=== PATIENT | female | born 1985 | race Caucasian/White ===

== ENCOUNTER → 2019-01-03 | Outpatient (CLI) | payer OTHER | END | disposition home or self-care (01) | LOC: LABWHC1 11:03 | PROVIDERS: ATTEND Obstetrics & Gynecology | DX: N92.6 Irregular menstruation, unspecified (principal) | CPT/HCPCS: 36415; 84702; 86850; 86900; 86901 ==

== ENCOUNTER → 2019-06-16 | Outpatient (CLI) | payer OTHER ==
--- NOTE | 2019-06-16 13:56 | MR ---
EXAMINATION TYPE: MR brain wo/w con DATE OF EXAM: 06/16/2019 COMPARISON: NONE HISTORY: Papillitis OD TECHNIQUE: Multiplanar, multisequence images of the brain and brainstem is performed without and with IV contras t, utilizing 10 mL intravenous Gadavist . FINDINGS: Diffusion weighted images demonstrate no evidence of a recent infarct or other diffusion ab normality. There is no extra-axial fluid collection or significant white matter signal abnormality. The ventricular system and cisternal spaces are normal in size and appearance. The brain volume is age appropriate. Midline structures demonstrate normal morphology. The craniocervical junction appears within normal limits. Post contrast images demonstrate no abnormal enhancement. The dural venous sinuses appear pa tent. Mild to moderate mucosal thickening involving inferior aspect bilateral maxillary sinuses and b ilateral ethmoid sinuses is present. Mild mucosal thickening involving inferior frontal sinuses bilat erally. The globes are intact bilaterally. No suspicious optic nerve enhancement. Intraconal fat is maintaine d. IMPRESSION: Chronic paranasal sinus disease otherwise unremarkable study.
== END ==
LOC: RADMRIMAIN 13:05
PROVIDERS: ATTEND Ophthalmology
DX: H47.11 Papilledema associated with increased intracranial pressure (principal)
CPT/HCPCS: 70553; A9585

== ENCOUNTER → 2019-08-04 | Outpatient (CLI) | payer OTHER ==
--- NOTE | 2019-08-04 16:30 | FL ---
EXAMINATION TYPE: FL hysterosalpingography DATE OF EXAM: 08/04/2019 COMPARISON: None HISTORY: Infertility TECHNIQUE: 38 seconds fluoroscopy time. 13 images. 4 mL Isovue-[id number]. The procedure was explained to the patient, the risks complications and benefits. All questions are a nswered. Written and verbal informed consent was obtained. Patient was placed on the fluoroscopy table. A speculum was inserted. The vaginal vault was cleansed with Betadine. The cervix was localized. The catheter was placed into the cervical os. Contrast was a dministered in retrograde manner. This was observed under fluoroscopic observation during injection. The catheter was removed. The speculum was removed. Patient was placed in the prone position and a de layed images obtained. FINDINGS: Uterus has a normal morphology. The fallopian tubes appear normal. Free spill from the bilateral dist al fallopian tubes are noted. IMPRESSION: 1. No obstruction on hysterosalpingogram
== END | disposition home or self-care (01) ==
LOC: RADUSWWP 13:09
PROVIDERS: ATTEND Obstetrics & Gynecology
DX: N97.9 Female infertility, unspecified (principal)
CPT/HCPCS: 58340; 74740; Q9967

== ENCOUNTER → 2019-08-15 | Outpatient (CLI) | payer OTHER ==
--- NOTE | 2019-08-15 09:42 | CT ---
EXAMINATION TYPE: CT sinus wo con DATE OF EXAM: 08/15/2019 COMPARISON: MRI brain June 16, 2019 HISTORY: Chronic sinusitis per order. Headaches and facial pain since February for patient. CT DLP: 590.1 mGycm. Automated Exposure Control for Dose Reduction was Utilized. TECHNIQUE: CT scan of the sinuses is performed without contrast, axial images are obtained, coronal r eformatted images are also reviewed. FINDINGS: Minimal mucosal thickening inferior bilateral maxillary sinuses left greater than right is improved from MRI. Patchy fluid signal anterior and the larger caliber left sphenoid sinus axial imag e 20 is new from MRI. Improvement in mucosal thickening with mild residual mucosal thickening left an terior ethmoid sinuses noted from prior MRI. Frontal sinuses are currently clear The ostiomeatal comp osorio is patent bilaterally on coronal image 16. Visualized portion of mastoid air cells show no abnormal opacification. The globes are intact bilate rally. Visualized portion of brain parenchyma is unremarkable. IMPRESSION: Possible new mild left acute sphenoid sinusitis. Interval improvement in chronic paranasa l sinus disease from comparison MRI.
== END | disposition home or self-care (01) ==
LOC: RADCTMAIN 08:22
PROVIDERS: ATTEND Otolaryngology
DX: J32.9 Chronic sinusitis, unspecified (principal)
CPT/HCPCS: 70486

== ENCOUNTER → 2019-08-28 | Outpatient (CLI) | payer OTHER | END | disposition home or self-care (01) | LOC: LABWHC1 11:25 | PROVIDERS: ATTEND Obstetrics & Gynecology | DX: N92.6 Irregular menstruation, unspecified (principal) | CPT/HCPCS: 36415; 84702 ==

== ENCOUNTER 2020-04-03 21:02 | Outpatient (CLI) | payer OTHER ==
[2020-04-03 21:43] VITALS: BP 119/72; PULSE 77; RESP 16; TEMP 97.2
--- NOTE | 2020-04-04 07:14 | P.MSEPDOC ---
Presenting Problems - Arrival Data Date of Arrival on Unit: 04/03/20 Time of Arrival on Unit: 21:02 Mode of Transport: Ambulatory - Complaint OB-Reason for Admission/Chief Complaint: NST Medical History - Information : 1 Para: 0 Term: 0 : 0 Abortions: Spontaneous or Elective: 0 Number of Living Children: 0 - Gestational Age Gestational Age by VIPIN (wks/days): 35 Weeks and 6 Days Review of Systems - Review of Systems Constitutional: No problems Breast: No problems ENT: No problems Cardiovascular: No problems Respiratory: No problems Gastrointestinal: No problems Genitourinary: No problems Musculoskeletal: No problems Neurological: No problems Skin: No problems Vital Signs - Temperature Temperature: 97.2 F Temperature Source: Oral - Pulse Right Pulse Rate: 77 Pulse Assessment Method: Automatic Cuff - Respirations Respiratory Rate: 16 Oxygen Delivery Method: Room Air O2 Sat by Pulse Oximetry: 98 - Blood Pressure Right Arm Blood Pressure: 119/72 Blood Pressure Mean: 87 Blood Pressure Source: Automatic Cuff Medical Screen Scoring (Pre) - Cervical Exam Dilation: Exam Deferred Effacement: Exam Deferred Membranes: Intact - Uterine Contractions Frequency: N/A Duration: N/A Intensity: N/A - Maternal Vital Signs Maternal Temperature: N/A Maternal Blood Pressure: N/A Signs of Preeclampsia: N/A Maternal Respirations: N/A - Maternal Trauma Maternal Trauma: N/A - Assessment - Baby A Baseline FHR: 130 Heart Rate - NICHD Category: Category I (Normal) = 0 NST: Reactive Position: N/A Station: N/A - Total Score - Baby A Total Score - Baby A: 0 - Total Score - Baby B Total Score - Baby B: 0 - Total Score - Baby C Total Score - Baby C: 0 - Level of Risk - Baby A Level of Risk - Baby A: Low (0-5) - Level of Risk - Baby B Level of Risk - Baby B: Low (0-5) - Level of Risk - Baby C Level of Risk - Baby C: Low (0-5) Physician Notification (Pre) - Physician Notified Physician Notified Date: 04/03/20 Physician Notified Time: 21:15 New Order Received: Yes (discharge to keep appt on Sunday) Disposition - Disposition OB Disposition: Discharge to home Discharge Date: 04/03/20 Discharge Time: 21:30 I agree with the RN Medical Screening Exam: Yes Risk & Benefit of care provided described in d/c instruction: Yes Diagnosis: SUPERVISION OF ELDERLY MULTIGRAVIDA, UNSPECIFIED TRIMESTER
== END 2020-04-03 21:30 | disposition home or self-care (01) ==
LOC: FBPOP 21:02
PROVIDERS: ATTEND Obstetrics & Gynecology
DX: O09.523 Supervision of elderly multigravida, third trimester (principal); Z3A.35 35 weeks gestation of pregnancy
CPT/HCPCS: 59025

== ENCOUNTER 2020-04-10 13:14 | Outpatient (CLI) | payer OTHER ==
[2020-04-10 15:49] VITALS: BP 141/75; PULSE 88; RESP 17; TEMP 97.3
--- NOTE | 2020-04-21 16:40 | P.MSEPDOC ---
Presenting Problems - Arrival Data Date of Arrival on Unit: 04/10/20 Time of Arrival on Unit: 13:14 Mode of Transport: Ambulatory - Complaint OB-Reason for Admission/Chief Complaint: NST Comment: pt presents to triage for twice weekly nst for AMA Medical History - Information : 1 Para: 0 Term: 0 : 0 Abortions: Spontaneous or Elective: 0 Number of Living Children: 0 - Gestational Age Gestational Age by VIPIN (wks/days): 36 Weeks and 6 Days Review of Systems - Review of Systems Constitutional: No problems Breast: No problems ENT: No problems Cardiovascular: No problems Respiratory: No problems Gastrointestinal: No problems Genitourinary: No problems Musculoskeletal: No problems Neurological: No problems Skin: No problems Vital Signs - Temperature Temperature: 97.3 F - Pulse Right Brachial Pulse Rate: 88 - Respirations Respiratory Rate: 17 Oxygen Delivery Method: Room Air - Blood Pressure Right Arm Blood Pressure: 141/75 Blood Pressure Mean: 97 Blood Pressure Source: Automatic Cuff Medical Screen Scoring (Pre) - Cervical Exam Dilation: Exam Deferred Effacement: Exam Deferred Membranes: Intact - Uterine Contractions Frequency: N/A Duration: N/A Intensity: N/A - Maternal Vital Signs Maternal Temperature: N/A Signs of Preeclampsia: N/A Maternal Respirations: N/A - Maternal Trauma Maternal Trauma: N/A - Assessment - Baby A Baseline FHR: 130 Heart Rate - NICHD Category: Category I (Normal) = 0 NST: Reactive Position: N/A Station: N/A - Total Score - Baby A Total Score - Baby A: 0 - Total Score - Baby B Total Score - Baby B: 0 - Total Score - Baby C Total Score - Baby C: 0 - Level of Risk - Baby A Level of Risk - Baby A: Low (0-5) - Level of Risk - Baby B Level of Risk - Baby B: Low (0-5) - Level of Risk - Baby C Level of Risk - Baby C: Low (0-5) Physician Notification (Pre) - Physician Notified Physician Notified Date: 04/10/20 Physician Notified Time: 14:35 - Notification Comment Comment: rechecked 3 bp's and discharged pt home, no symptoms of preeclampsia Disposition - Disposition OB Disposition: Discharge to home, Written follow up instructions reviewed Discharge Date: 04/10/20 Discharge Time: 14:45 I agree with the RN Medical Screening Exam: Yes Risk & Benefit of care provided described in d/c instruction: Yes Diagnosis: RELATED CONDITIONS, UNSPECIFIED, THIRD TRIMESTER
== END 2020-04-10 14:45 | disposition home or self-care (01) ==
LOC: FBPOP 13:14
PROVIDERS: ATTEND Obstetrics & Gynecology
DX: O26.93 Pregnancy related conditions, unspecified, third trimester (principal); Z3A.36 36 weeks gestation of pregnancy
CPT/HCPCS: 59025; 99213

== ENCOUNTER 2020-04-22 11:51 | Inpatient (IN) | payer OTHER ==
[2020-04-22 12:46] LABS: Basophils % (A) 0 %; Eosinophils # (A) 0.1 k/uL (0-0.7); Eosinophils % (A) 1 %; HCT 40.4 % (34.0-46.0); HGB 13.6 gm/dL (11.4-16.0); Lymphocytes # (A) 1.5 k/uL (1.0-4.8); Lymphocytes % (A) 18 %; MCH 30.7 pg (25.0-35.0); MCHC 33.7 g/dL (31.0-37.0); Mean Platelet Volume 7.3; Monocytes # (A) 0.5 k/uL (0-1.0); Monocytes % (A) 6 %; Neutrophils # (A) 6.2 k/uL (1.3-7.7); Neutrophils % (A) 74 %; Platelet Count 259 k/uL (150-450); RBC 4.44 m/uL (3.80-5.40); RDW 13.7 % (11.5-15.5); WBC 8.3 k/uL (3.8-10.6)
[2020-04-22 12:52] LABS: Appearance,Urine Clear (Clear); Bilirubin,Urine Negative (Negative); Blood,Urine Negative (Negative); Color,Urine Light Yellow; Glucose,Urine (UA) Negative (Negative); Ketones,Urine Negative (Negative); Leukocyte Esterase,Urine Negative (Negative); Nitrite,Urine Negative (Negative); Protein,Urine Negative (Negative); Specific Gravity,Urine 1.009 (1.001-1.035); Urobilinogen,Urine <2.0 mg/dL (<2.0)
[2020-04-22 12:54] LABS: ALT 10 U/L (4-34); AST 19 U/L (14-36); African American GFR (CKD) >90 (>60 ml/min/1.73 sqM); Blood Urea Nitrogen 7 mg/dL (7-17); LDH 303 U/L (313-618); Non-African American GFR(CKD) >90 (>60 ml/min/1.73 sqM)
[2020-04-22 13:00] LABS: Creatinine,Urine Random 42.1 mg/dL; Protein/Creatinine Ratio,Urine 0.333
[2020-04-22] MEDS ORDERED: ACETAMINOPHEN TAB 500 MG TAB PO PRN (15:13)
[2020-04-22] MEDS ORDERED: DINOPROSTONE 10 MG INSERT.ER VAGINAL ONE (16:00)
--- NOTE | 2020-04-22 18:04 | P.HPOB ---
History of Present Illness H&P Date: 04/22/20 Chief Complaint: Elevated blood pressures, headache This is a 35-year-old female 2 para 0 with an estimated date of confinement of 05/02/2020, estimated gestational age of 38-4/7 weeks, who presents to labor and delivery with complaints of elevated blood pressures at home in the 140s over 80s. She also has noticed a headache today. She has been having lower extremity swelling for a little while now. course has been complicated by renal pelvis dilation. She has been getting twice weekly nonstress tests and biophysical profiles at maternal medicine. Her latest ultrasound on 04/19/2020 still showed renal dilatation and fetus in the vertex presentation. All of her preeclampsia labs were normal other than a protein to creatinine ratio of 0.33. Her blood pressures however were in the 140s to 150s over 80s to 90s. labs: Hepatitis B surface antigen-negative RPR-nonreactive Rubella-immune Blood type-A+ Antibody screen-negative Hemoglobin-13.7 Random glucose-89 Obstetrical ultrasound-normal anatomy other than renal pelvis dilatation 1 hour Glucola-111 Group B streptococcus-negative Obstetrical history: history of 1 termination of . Gynecologic history: History of chlamydia treated in 2008. History of infertility. Patient did conceive on Clomid. Social history: She is . She works in a pharmacy. Review of Systems Constitutional: Denies chills, Denies fever Eyes: denies blurred vision Ears, nose, mouth and throat: Reports headache, Denies sore throat Cardiovascular: Denies chest pain, Denies shortness of breath Respiratory: Denies cough Gastrointestinal: Denies abdominal pain, Denies diarrhea, Denies nausea, Denies vomiting Genitourinary: Reports pelvic pain, Reports Musculoskeletal: Reports low back pain Musculoskeletal: bilateral: foot swelling Integumentary: Denies pruritus, Denies rash Neurological: Denies numbness, Denies weakness Psychiatric: Denies anxiety, Denies depression Past Medical History Past Medical History: No Reported History History of Any Multi-Drug Resistant Organisms: None Reported Additional Past Surgical History / Comment(s): LEEP 2010, wisdom teeth removal Past Anesthesia/Blood Transfusion Reactions: No Reported Reaction Past Psychological History: ADD/ADHD Smoking Status: Never smoker Past Drug Use History: None Reported - Past Family History Father Family Medical History: Coronary Artery Disease (CAD), Hypertension Additional Family Medical History / Comment(s): heart attack 2003 Medications and Allergies Home Medications Medication Instructions Recorded Confirmed Type Fexofenadine HCl [Pam Allergy] 60 mg PO BID 04/03/20 04/22/20 History Pnv,Calcium 72/Iron/Folic Acid 1 tab PO DAILY 04/03/20 04/22/20 History [ Plus Tablet] RX: Folic Acid 1 tab PO DAILY 04/03/20 04/22/20 History Allergies Allergy/AdvReac Type Severity Reaction Status Date / Time No Known Allergies Allergy Verified 04/22/20 12:14 Exam Osteopathic Statement: *. No significant issues noted on an osteopathic structural exam other than those noted in the History and Physical/Consult. Vital Signs Temp Pulse Resp BP Pulse Ox 04/22/20 15:42 97.7 F 75 18 144/93 98 04/22/20 12:16 97.7 F 93 18 144/93 98 Intake and Output 04/22/20 04/22/20 04/22/20 06:59 14:59 22:59 Intake Total 350 Balance 350 Intake: Oral 350 Other: # Voids 2 Weight 115.212 kg 115.212 kg HEENT: Within normal limits Heart: Regular rate and rhythm Lungs: Clear to auscultation bilaterally Abdomen: Cervix: Fingertip, 70%, -2 station, anterior. heart tones: Category 1 Contractions: Irregular Extremities: Negative Homans. 2+ pitting edema. Results Result Diagrams: 04/22/20 12:30 04/22/20 12:30 Abnormal Lab Results - Last 24 Hours (Table) 04/22/20 Range/Units 12:30 Creatinine 0.46 L (0.52-1.04) mg/dL Lactate Dehydrogenase 303 L (313-618) U/L Assessment and Plan (1) Gestational hypertension Current Visit: Yes Status: Acute Code(s): O13.9 - GESTATIONAL HTN W/O SIGNIFICANT PROTEINURIA, UNSP TRIMESTER SNOMED Code(s): 133880691 Plan: Will admit for Cervidil cervical ripening followed by oxytocin induction of labor due to gestational hypertension. Will observe blood pressures since they are not in the severe category at this time. Patient and are in agreement with this plan. She was also offered a section since she is remote from delivery but since she is stable at this time, she wishes to proceed with induction of labor.
[2020-04-23] MEDS: BUTORPHANOL 1 MG/ML 1 ML VIAL IV PRN ×2 (03:36→09:39)
[2020-04-23] MEDS: LACTATED RINGERS 1,000 ML IV SCH ×4 (03:45→17:36)
[2020-04-23] MEDS ORDERED: LIDOCAINE 0.5% (PF) 5 MG/ML (50 ML SDV) SQ PRN (04:32)
[2020-04-23] MEDS ORDERED: OXYTOCIN 10 UNIT/ML 1 ML VIAL IM PRN (04:32)
[2020-04-23] MEDS ORDERED: CARBOPROST TROMETHAMINE 250 MCG/ML 1 ML AMP IM PRN (04:32)
[2020-04-23] MEDS ORDERED: METHYLERGONOVINE 0.2 MG/ML 1 ML AMP IM PRN (04:32)
[2020-04-23] MEDS ORDERED: TERBUTALINE 1 MG/ML VIAL SQ PRN (04:32)
[2020-04-23] MEDS ORDERED: OXYTOCIN 30 UNITS/500 ML NS 30 UNIT in SALINE 1 500ML.BAG IV SCH (04:32)
[2020-04-23] MEDS ORDERED: LIDOCAINE 1% (10MG/ML) FOR IV START INTRADERMA PRN (04:32)
[2020-04-23] MEDS ORDERED: PRENATAL VIT-IRON-FOLIC ACID 1 EACH CAP PO SCH (09:00)
[2020-04-23] MEDS: LORATADINE 10 MG TAB PO SCH (09:41)
[2020-04-23] MEDS: FOLIC ACID 1 MG TAB PO SCH (09:41)
[2020-04-23] MEDS ORDERED: CITRIC ACID-SODIUM CITRATE 15 ML CUP PO ONE (18:39)
[2020-04-23] MEDS ORDERED: KETOROLAC 30 MG/ML 1 ML VIAL ONE (19:38)
[2020-04-23] MEDS ORDERED: OXYTOCIN 10 UNIT/ML 1 ML VIAL ONE (19:38)
[2020-04-23] MEDS ORDERED: ONDANSETRON 4 MG/2 ML VIAL ONE (19:38)
[2020-04-23] MEDS ORDERED: METOCLOPRAMIDE 5 MG/ML 2 ML VIAL IVP PRN (20:28)
[2020-04-23] MEDS ORDERED: ONDANSETRON 4 MG/2 ML VIAL IVP PRN (20:28)
[2020-04-23] MEDS ORDERED: ACETAMINOPHEN TAB 325 MG TAB PO PRN (20:28)
[2020-04-23] MEDS ORDERED: HYDROmorphone PCA 10 MG/50 ML BAG IV PRN (20:28)
[2020-04-23] MEDS ORDERED: diphenhydrAMINE 25 MG CAP PO PRN (20:28)
[2020-04-23] MEDS ORDERED: HYDROcodone/APAP 7.5-325MG 1 EACH TAB PO PRN (20:28)
[2020-04-23] MEDS ORDERED: diphenhydrAMINE 50 MG/ML 1 ML VIAL IVP PRN ×2 (20:28)
[2020-04-23] MEDS ORDERED: ZOLPIDEM 5 MG TAB PO PRN (20:28)
[2020-04-23] MEDS ORDERED: OXYTOCIN 20 UNITS/1000 ML NS 1,000 ML IV SCH (20:28)
[2020-04-23] MEDS ORDERED: NALOXONE 0.4 MG/ML 1 ML VIAL IV PRN ×2 (20:28)
[2020-04-23] MEDS ORDERED: diphenhydrAMINE 50 MG CAP PO PRN (20:28)
[2020-04-23] MEDS ORDERED: SIMETHICONE 80 MG CHEWABLE PO PRN (20:28)
--- NOTE | 2020-04-23 20:30 | P.OP ---
Date of Procedure: 04/23/20 Preoperative Diagnosis: 1. Intrauterine at 38-5/7 weeks. 2. Gestational hypertension. 3. tachycardia. 4. intolerance of labor. Postoperative Diagnosis: Same Procedure(s) Performed: Primary low transverse section Anesthesia: epidural Surgeon: Martha Neal Inventory Administrator #1: Emily Rahman Estimated Blood Loss (ml): 400 Pathology: other (Placenta) Condition: stable Disposition: floor Indications for Procedure: This is a 35 year old female 2 para 0 at 38-5/7 weeks who was admitted for gestational hypertension. She was given a Cervidil cervical ripening last night followed by oxytocin induction of labor today. Initially she started at fingertip and did progress to a maximum of 6 centimeters 90% and -2 station. At this time mother did start to have a low-grade temp and tachycardia was noted. In addition the fetus started having some late decelerations. At this point the decision was made to proceed with section. I have discussed the risks, benefits, and alternative therapies for the above- mentioned procedure and for both sedation/anesthesia as well as necessary blood products administration, if indicated, as they pertain to this patient. The patient has indicated her understanding and acceptance of the risks and procedures discussed. Operative Findings: A viable male is noted in the vertex presentation with scores of 9 at 1 minute and 9 at 5 minutes and infant weight of 6 lbs. 12 oz. Some caput was noted. Normal uterus tubes and ovaries are noted. Description of Procedure: The patient is taken to the operating room where she is placed in the dorsal supine position with leftward tilt after epidural anesthesia is bolused. She is prepped and draped in the normal sterile fashion. Skin was tested and found to be adequately anesthetized. A Pfannenstiel skin incision was made with a scalpel. A second knife was used to carry the incision down to the underlying layer of fascia. The fascia was nicked in the midline with a scalpel and then extended laterally bilaterally with Anderson scissors. The anterior lip of the fascia was grasped with 2 Gabrielle clamps and then dissected off the underlying rectus muscle in the midline with Anderson scissors. The inferior aspect of the fascial incision was grasped with 2 Gabrielle clamps and dissected off the underlying rectus muscle and the midline with Anderson scissors. Next the peritoneum layer was tented up with 2 hemostats and then entered sharply with the scalpel. The incision is extended superiorly and inferiorly with Metzenbaum scissors. Next a DeLee retractor is placed. The vesicouterine peritoneum is entered sharply with Metzenbaum scissors and extended laterally bilaterally with Metzenbaum scissors and then the bladder flap is pushed inferiorly. The lower uterine segment is incised in transverse fashion with the scalpel and then bluntly entered with a hemostat. Clear fluid is noted. The incision was then extended laterally bilaterally with 2 fingers. Next the infant's head is delivered through the incision. Nose and mouth are bulb suctioned. The remainder of the infant is easily delivered and placed on mother's abdomen. Cord is clamped and cut. Infant is taken to warmer by nursing staff. Uterine fundus is gently massaged and placenta is delivered manually. Uterus is exteriorized and cleared of all clots and debris. Uterine incision is closed with 0 Vicryl suture in a running locked fashion. A second layer of 0 Vicryl suture is used in a running fashion for hemostasis. Once adequate hemostasis as assured, the vesicouterine peritoneum is reapproximated with 2-0 Vicryl suture in a running fashion. Posterior cul-de-sac is suctioned of all clots and debris. Uterus is returned to the abdomen. Incision is noted to be hemostatic. Peritoneal layer is closed with 0 Vicryl suture in a running fashion. Muscle layer is reapproximated with 0 Vicryl suture in interrupted fashion. Fascia layer is then closed with 0 PDS suture with 2 sutures meeting in the midline and the knots buried in either side and in the midline. The subcutaneous tissue was then closed with 2-0 Vicryl suture. Skin layer was then closed with jen. All sponge and needle counts are correct. The patient is taken to recovery room in stable condition.
[2020-04-23] MEDS: SENNOSIDES-DOCUSATE SODIUM 1 EACH TAB PO SCH (21:20)
[2020-04-23] MEDS ORDERED: ACETAMINOPHEN IV (For NPO) 1,000 MG in EMPTY BAG 1 BAG IVPB STA (22:36)
[2020-04-24] MEDS: LACTATED RINGERS 1,000 ML IV SCH (01:05)
[2020-04-24] MEDS: KETOROLAC 15 MG/ML 1 ML VIAL IVP PRN ×3 (04:42→19:51)
[2020-04-24 06:28] LABS: Basophils % (A) 0 %; Eosinophils # (A) 0.1 k/uL (0-0.7); Eosinophils % (A) 0 %; HCT 36.4 % (34.0-46.0); HGB 11.9 gm/dL (11.4-16.0); Lymphocytes # (A) 1.4 k/uL (1.0-4.8); Lymphocytes % (A) 10 %; MCH 30.9 pg (25.0-35.0); MCHC 32.8 g/dL (31.0-37.0); MCV 94.2 fL (80.0-100.0); Mean Platelet Volume 7.6; Monocytes # (A) 0.6 k/uL (0-1.0); Monocytes % (A) 5 %; Neutrophils # (A) 11.3 k/uL (1.3-7.7); Neutrophils % (A) 84 %; Platelet Count 199 k/uL (150-450); RBC 3.87 m/uL (3.80-5.40); RDW 13.7 % (11.5-15.5); WBC 13.6 k/uL (3.8-10.6)
[2020-04-24] MEDS: HYDROcodone/APAP 5-325MG 1 EACH TAB PO PRN (09:02)
[2020-04-24] MEDS: SENNOSIDES-DOCUSATE SODIUM 1 EACH TAB PO SCH ×2 (09:08→19:51)
--- NOTE | 2020-04-24 11:10 | P.PNOBGPC ---
Subjective - Subjective Principal diagnosis: Status post primary section postoperative day #1 Interval history: Patient states her pain is okay today. She did have some trouble controlling pain last night. She did have Duramorph placed in the epidural before it was pulled. She states that nothing they have given her has helped that much. She is passing flatus but no bowel movement yet. She has urinated. She is working at breast-feeding. Patient reports: Reports appetite normal, Reports voiding normally, Reports pain poorly controlled, Reports ambulating normally [place]: doing well Objective - Vital Signs Latest vital signs: Vital Signs Temp Pulse Resp BP Pulse Ox 04/24/20 08:00 97.8 F 73 14 114/75 04/24/20 04:00 98.6 F 70 16 112/72 97 04/24/20 00:00 98.2 F 71 16 110/70 96 04/23/20 22:21 100.2 F H 81 16 142/66 97 04/23/20 21:51 85 16 137/64 97 04/23/20 21:21 84 16 143/67 96 04/23/20 21:06 81 16 139/65 96 04/23/20 20:51 84 16 142/90 97 04/23/20 20:36 82 16 136/60 98 04/23/20 20:28 98 04/23/20 20:21 99.1 F 89 16 119/57 98 Intake and Output 04/23/20 04/24/20 04/24/20 22:59 06:59 14:59 Output Total 600 Balance -600 Output: Urine 600 Uretheral ([place]) 600 Other: # Voids 0 - Exam Extremities: Present: edema. Absent: tenderness Abdomen: Present: normal appearance, soft (Positive bowel sounds 4). Absent: distention, tenderness Incision: Present: normal, dry, intact. Absent: erythematous Uterus: Present: normal, firm. Absent: tenderness - Labs Labs: Abnormal Lab Results - Last 24 Hours (Table) 04/24/20 Range/Units 05:35 WBC 13.6 H (3.8-10.6) k/uL Neutrophils # 11.3 H (1.3-7.7) k/uL Assessment and Plan Assessment: Status post primary low transverse section postoperative day #1 (1) Gestational hypertension Current Visit: Yes Status: Acute Code(s): O13.9 - GESTATIONAL HTN W/O SIGNIFICANT PROTEINURIA, UNSP TRIMESTER SNOMED Code(s): 245198653 Plan: Continue with postoperative and care. Encouraged ambulation and fluids. Will work on breast-feeding today. Will advance diet as tolerated.
--- NOTE | 2020-04-24 11:17 | P.MSEPDOC ---
Presenting Problems - Arrival Data Date of Arrival on Unit: 04/22/20 Time of Arrival on Unit: 13:30 Mode of Transport: Ambulatory - Complaint OB-Reason for Admission/Chief Complaint: PIH Comment: pt having symptoms of preeclampsia Medical History - Information : 2 Para: 0 Term: 0 : 0 Abortions: Spontaneous or Elective: 0 Number of Living Children: 0 - Gestational Age Gestational Age by VIPIN (wks/days): 38 Weeks and 5 Days Review of Systems - Review of Systems Constitutional: No problems Breast: No problems ENT: No problems Cardiovascular: No problems Respiratory: No problems Gastrointestinal: No problems Genitourinary: No problems Musculoskeletal: No problems Neurological: No problems Skin: No problems Vital Signs - Temperature Temperature: 97.8 F Temperature Source: Oral - Pulse Right Brachial Pulse Rate: 73 Pulse Assessment Method: Automatic Cuff - Respirations Respiratory Rate: 14 Oxygen Delivery Method: Room Air - Blood Pressure Right Arm Blood Pressure: 114/75 Blood Pressure Mean: 88 Blood Pressure Source: Automatic Cuff Medical Screen Scoring (Pre) - Cervical Exam Dilation: 1-3 cm = 1 Effacement: More than 50% = 2 Membranes: Intact - Uterine Contractions Frequency: N/A Duration: N/A Intensity: N/A - Maternal Vital Signs Maternal Temperature: N/A Maternal Blood Pressure: Systolic >139 = 2 Signs of Preeclampsia: Headache = 1 Maternal Respirations: N/A - Maternal Trauma Maternal Trauma: N/A - Assessment - Baby A Baseline FHR: 150 Heart Rate - NICHD Category: Category I (Normal) = 0 NST: Reactive Position: N/A Station: N/A - Total Score - Baby A Total Score - Baby A: 6 - Total Score - Baby B Total Score - Baby B: 6 - Total Score - Baby C Total Score - Baby C: 6 - Level of Risk - Baby A Level of Risk - Baby A: Medium (6-9) - Level of Risk - Baby B Level of Risk - Baby B: Medium (6-9) - Level of Risk - Baby C Level of Risk - Baby C: Medium (6-9) Physician Notification (Pre) - Physician Notified Physician Notified Date: 04/22/20 Physician Notified Time: 12:25 New Order Received: Yes - Notification Comment Comment: obtain PIH labs, Medical Screen Scoring (Post) - Maternal Vital Signs Maternal Temperature: N/A Maternal Blood Pressure: Systolic >139 = 2 Signs of Preeclampsia: Headache = 1 Maternal Respirations: N/A - Maternal Trauma Maternal Trauma: N/A - Assessment - Baby A Heart Rate: 135 Heart Rate - NICHD Category: Category I (Normal) = 0 NST: Reactive Position: N/A Station: N/A - Total Score Total Score - Baby A: 3 Total Score - Baby B: 3 Total Score - Baby C: 3 - Post Treatment Level of Risk Post Treatment Level of Risk - Baby A: Low (0-5) Post Treatment Level of Risk - Baby B: Low (0-5) Post Treatment Level of Risk - Baby C: Low (0-5) Physician Notification (Post) - Physician Notified Physician Notified Date: 04/22/20 Physician Notified Time: 13:30 Physician/Practitioner Notified:: Dr. Neal Spoke With: Dr. Neal New Order Received: Yes - Notification Comment Comment: admit pt for cervidil induction due to gest hypertension Disposition - Disposition OB Disposition: Admit I agree with the RN Medical Screening Exam: Yes Risk & Benefit of care provided described in d/c instruction: Yes Diagnosis: GESTATIONAL HTN W/O SIGNIFICANT PROTEINURIA, THIRD TRIMESTER
[2020-04-24] MEDS: LORATADINE 10 MG TAB PO SCH (18:18)
[2020-04-25] MEDS: HYDROcodone/APAP 5-325MG 1 EACH TAB PO PRN (00:34)
[2020-04-25] MEDS: IBUPROFEN 600 MG TAB PO PRN ×3 (06:31→21:22)
--- NOTE | 2020-04-25 10:46 | P.PNOBGPC ---
Subjective - Subjective Principal diagnosis: Status post primary section postoperative day #2 Interval history: Patient is doing better today. Her pain is more controlled. Lochia is minimal. She is still working on breast-feeding. Baby is on a bili light. She is urinating without difficulty. She is passing flatus and bowel movement. Patient reports: Reports appetite normal, Reports voiding normally, Reports pain well controlled, Reports ambulating normally : doing well Objective - Vital Signs Latest vital signs: Vital Signs Temp Pulse Resp BP Pulse Ox 04/25/20 08:00 98 F 80 14 132/87 04/25/20 00:00 97.7 F 74 14 124/81 96 04/24/20 15:40 97.9 F 73 14 110/73 04/24/20 12:00 97.8 F 76 14 120/80 04/24/20 11:17 97.8 F 73 14 114/75 - Exam Extremities: Present: edema (2+ pitting). Absent: tenderness Abdomen: Present: normal appearance, soft (Positive bowel sounds 4). Absent: distention, tenderness Incision: Present: normal, dry, intact. Absent: erythematous Uterus: Present: normal, firm. Absent: tenderness Assessment and Plan Assessment: Status post primary section postoperative day #2 (1) Gestational hypertension Current Visit: Yes Status: Acute Code(s): O13.9 - GESTATIONAL HTN W/O SIGNIFICANT PROTEINURIA, UNSP TRIMESTER SNOMED Code(s): 218631379 Plan: Will continue with postoperative and care. Blood pressures have been normal. Possible discharge home tomorrow.
[2020-04-25] MEDS: SENNOSIDES-DOCUSATE SODIUM 1 EACH TAB PO SCH ×2 (10:55→21:18)
[2020-04-25] MEDS: LACTATED RINGERS 1,000 ML IV SCH (10:56)
[2020-04-25] MEDS: LORATADINE 10 MG TAB PO SCH (10:56)
--- NOTE | 2020-04-25 14:55 | P.PN ---
Progress Note - Text 04/24 35-year-old female status post and received Duramorph why the epidural catheter. Patient seen and evaluated for postop pain control, patient was comfortable no complaints of nausea vomiting. Doing well
[2020-04-25] MEDS: FOLIC ACID 1 MG TAB PO SCH (21:25)
[2020-04-26] MEDS: HYDROcodone/APAP 5-325MG 1 EACH TAB PO PRN ×2 (08:20)
[2020-04-26] MEDS: SENNOSIDES-DOCUSATE SODIUM 1 EACH TAB PO SCH (08:21)
[2020-04-26 08:57] VITALS: BP 121/80; PULSE 73; RESP 16; TEMP 98.3
--- NOTE | 2020-04-26 08:59 | P.DS ---
Providers Date of admission: 04/22/20 13:35 Expected date of discharge: 04/26/20 Attending physician: Martha Neal Primary care physician: Stated None - Discharge Diagnosis(es) (1) Gestational hypertension Current Visit: Yes Status: Acute Hospital Course: This is a 35 Neal female 2 para 0 at 38-6/7 weeks who presented with elevated blood pressures. She was diagnosed with gestational hypertension. All of her preeclampsia labs were negative. She underwent Cervidil cervical ripening followed by oxytocin induction of labor. She ultimately ended up with a primary section for intolerance to labor on 04/23/2020. She delivered a viable male infant in the vertex presentation with scores of 9 at 1 minute and 9 at 5 minutes and infant weight of 6 lbs. 12 oz. Her postoperative course has been essentially uncomplicated. Her blood pressures have been stable. She is passing flatus and bowel movement at this time. Her pain is well-controlled with ibuprofen and [place]. She is working on breast- feeding. Vital signs are stable. Abdomen is soft with positive bowel sounds 4. Incision is clean dry and intact with jen in place. Extremities show negative Homans. Impression is status post primary section postoperative day #3. Plan is to discharge home today. Routine postoperative and instructions are given. She is advised to follow up in the office in approximately 1 week for a postoperative check and in 6 weeks for check. She will be given a prescription for ibuprofen and [place]. She will also be given a prescription for a breast pump. She is advised to call the office if she has any further questions or concerns prior to her appointment time. Procedures: Cervidil cervical ripening Oxytocin induction of labor Primary low transverse section for delivery of a viable male on 04/23/2020 Patient Condition at Discharge: Stable Plan - Discharge Summary New Discharge Prescriptions: New Ibuprofen [Motrin] 600 mg PO Q6HR PRN #60 tab PRN Reason: Mild Pain Or Fever >= 100.5 HYDROcodone/APAP 5-325MG [[place] 5-325] 1 each PO Q4HR PRN #40 tab PRN Reason: Moderate Pain Continue Fexofenadine HCl [Pam Allergy] 60 mg PO BID Pnv,Calcium 72/Iron/Folic Acid [ Plus Tablet] 1 tab PO DAILY Folic Acid 1 tab PO DAILY Discharge Medication List Fexofenadine HCl [Pam Allergy] 60 mg PO BID 07/25/20 [History] Folic Acid 1 tab PO DAILY 04/03/20 [History] Pnv,Calcium 72/Iron/Folic Acid [ Plus Tablet] 1 tab PO DAILY 04/03/20 [History] HYDROcodone/APAP 5-325MG [[place] 5-325] 1 each PO Q4HR PRN #40 tab 04/26/20 [Rx] Ibuprofen [Motrin] 600 mg PO Q6HR PRN #60 tab 04/26/20 [Rx] Follow up Appointment(s)/Referral(s): Martha Neal DO [Doctor of Osteopathic Medicine] - 1 Week Activity/Diet/Wound Care/Special Instructions: Instructions 1. Do not begin any exercise program for 3 weeks. 2. Do not resume sexual relations for 3 weeks or longer if uncomfortable. 3. You may take tub baths or showers at any time. 4. You may use tampons if desired after 3 weeks. 5. Keep the area of episiotomy (stitches) clean and dry. 6. If you are not nursing, wear a good fitting, supportive bra during the day and limit fluid intake for at least 1 week to prevent breast engorgement. 7. Call the office, [phone], within the next week to make appointment for your 6 week checkup if it has not already been made. 8. Report any of the following occurrences to the doctor promptly: a. Heavy, excessive bleeding b. Chills, fever c. Burning or frequency of urination d. Pain or redness and breasts if nursing e. Increasing pain or swelling in episiotomy (stitches). In addition to the above instructions, the following additional should be followed: 1. No heavy lifting or straining (exercising) until after 6 week checkup. 2. Keep abdominal incision clean and dry: You may wear a dressing if more comfortable. 3. Make office appointment for 10 days after going home or as instructed by her doctor. Discharge Disposition: HOME SELF-CARE
[2020-04-26] MEDS: LORATADINE 10 MG TAB PO SCH (10:25)
[2020-04-26] MEDS: FOLIC ACID 1 MG TAB PO SCH (10:25)
[2020-04-26] MEDS: IBUPROFEN 600 MG TAB PO PRN (13:46)
== END 2020-04-26 13:50 | disposition home or self-care (01) | DRG 787 ==
LOC: FBPOP 11:51 → 4FBP 13:35
PROVIDERS: ADMIT Obstetrics & Gynecology; ATTEND Obstetrics & Gynecology
PROC: 3E0P7VZ Introduction of Hormone into Female Reproductive, Via Natural or Artificial Opening (ICD-10-PCS; 2020-04-22)
PROC: 10D00Z1 Extraction of Products of Conception, Low, Open Approach (ICD-10-PCS; principal; 2020-04-23 19:47)
DX: O13.4 Gestational [pregnancy-induced] hypertension without significant proteinuria, complicating childbirth (principal); O75.2 Pyrexia during labor, not elsewhere classified; O12.14 Gestational proteinuria, complicating childbirth; O76 Abnormality in fetal heart rate and rhythm complicating labor and delivery; F90.9 Attention-deficit hyperactivity disorder, unspecified type; O99.344 Other mental disorders complicating childbirth; Z3A.38 38 weeks gestation of pregnancy; Z37.0 Single live birth; Z82.49 Family history of ischemic heart disease and other diseases of the circulatory system
CPT/HCPCS: 59025; 81003; 82565; 82570; 83615; 84156; 84450; 84460; 84520; 84550; 85025; 86850; 86900; 86901; 88307; 99215

== ENCOUNTER 2021-04-26 11:53 | Inpatient (IN) | payer OTHER ==
[2021-04-26 12:43] LABS: Basophils % (A) 0 %; Eosinophils # (A) 0.1 k/uL (0-0.7); Eosinophils % (A) 1 %; HCT 42.1 % (34.0-46.0); HGB 14.4 gm/dL (11.4-16.0); Lymphocytes # (A) 1.4 k/uL (1.0-4.8); Lymphocytes % (A) 17 %; MCH 32.3 pg (25.0-35.0); MCHC 34.2 g/dL (31.0-37.0); MCV 94.7 fL (80.0-100.0); Mean Platelet Volume 8.5; Monocytes # (A) 0.4 k/uL (0-1.0); Monocytes % (A) 5 %; Neutrophils # (A) 6.2 k/uL (1.3-7.7); Neutrophils % (A) 76 %; Platelet Count 282 k/uL (150-450); Poikilocytosis Slight; RBC 4.45 m/uL (3.80-5.40); RDW 14.3 % (11.5-15.5); WBC 8.2 k/uL (3.8-10.6)
[2021-04-26 12:50] LABS: Appearance,Urine Cloudy (Clear); Bacteria,Urine Rare /hpf; Bilirubin,Urine Negative (Negative); Blood,Urine Negative (Negative); Color,Urine Light Yellow; Glucose,Urine (UA) Negative (Negative); Ketones,Urine Negative (Negative); Leukocyte Esterase,Urine Small (Negative); Mucus,Urine Rare /hpf; Nitrite,Urine Negative (Negative); Protein,Urine Negative (Negative); Specific Gravity,Urine 1.008 (1.001-1.035); Squamous Epithelial Cell,Urine 14 /hpf (0-4); Urobilinogen,Urine <2.0 mg/dL (<2.0); WBC,Urine 3 /hpf (0-5)
[2021-04-26 12:54] LABS: ALT 12 U/L (4-34); AST 22 U/L (14-36); African American GFR (CKD) >90 (>60 ml/min/1.73 sqM); Blood Urea Nitrogen 5 mg/dL (7-17); LDH 434 U/L (313-618); Non-African American GFR(CKD) >90 (>60 ml/min/1.73 sqM); Uric Acid 5.5 mg/dL (3.7-7.4)
[2021-04-26 12:56] LABS: Creatinine,Urine Random 35.2 mg/dL; Protein/Creatinine Ratio,Urine 0.455
[2021-04-26] MEDS ORDERED: MAG HYDROX/AL HYDROX/SIMETH 30 ML CUP PO PRN (13:16)
[2021-04-26] MEDS ORDERED: CITRIC ACID-SODIUM CITRATE 15 ML CUP PO ONE (13:18)
[2021-04-26 13:59] LABS: Basophils % (A) 0 %; Eosinophils # (A) 0.1 k/uL (0-0.7); Eosinophils % (A) 1 %; HCT 42.1 % (34.0-46.0); HGB 14.8 gm/dL (11.4-16.0); Lymphocytes # (A) 1.5 k/uL (1.0-4.8); Lymphocytes % (A) 18 %; MCHC 35.1 g/dL (31.0-37.0); MCV 94.3 fL (80.0-100.0); Mean Platelet Volume 8.7; Monocytes # (A) 0.4 k/uL (0-1.0); Monocytes % (A) 5 %; Neutrophils # (A) 6.3 k/uL (1.3-7.7); Neutrophils % (A) 75 %; Platelet Count 265 k/uL (150-450); Poikilocytosis Slight; RBC 4.47 m/uL (3.80-5.40); RDW 14.2 % (11.5-15.5); WBC 8.4 k/uL (3.8-10.6)
--- NOTE | 2021-04-26 16:12 | P.HPOB ---
History of Present Illness H&P Date: 04/26/21 Chief Complaint: Preeclampsia This a 36 y.o. female, 3, para 1, with an estimated date of confinement of 05/15/2021, estimated gestational age of 37-2/7 weeks, who was sent from office due to elevated BPs. Her BP in the office was 142/98. She did have a headache last night, but otherwise denies any other symptoms. She does have a history of gestational hypertension with her last . She has been following with [facility] and getting regular testing this . Labs drawn in triage were normal other than a protein/creatinine ratio of 0.45. In addition, her BPs were almost all high, but not quite to the severe category. Since she is beyond 37 weeks, we will proceed with delivery. She has a history of a previous section so we will proceed with repeat section. labs: GC/Chlamydia/Trich-neg Hepatitis B surface antigen-neg RPR-NR Rubella-immune Blood type-A+ Antibody screen-neg HIV-NR Hemoglobin-14.8 Random glucose-104 1 hr. glucola-108 GBS-neg OB Hx: . 1 due to failed induction. Induced at 38 weeks for gestational hypertension. Hx 1 EAB. Review of Systems Constitutional: Denies chills, Denies fever Eyes: denies blurred vision, denies pain Ears, nose, mouth and throat: Denies headache, Denies sore throat Cardiovascular: Denies chest pain, Denies shortness of breath Respiratory: Denies cough Gastrointestinal: Denies abdominal pain, Denies diarrhea, Denies nausea, Denies vomiting Genitourinary: Reports Musculoskeletal: Reports low back pain Integumentary: Denies pruritus, Denies rash Neurological: Reports headaches (last night) Psychiatric: Denies anxiety, Denies depression Past Medical History Past Medical History: No Reported History Additional Past Medical History / Comment(s): History of gestational hypertension with last History of Any Multi-Drug Resistant Organisms: None Reported Past Surgical History: Section Additional Past Surgical History / Comment(s): LEEP 2009, C/S 2019, wisdom teeth removal Past Anesthesia/Blood Transfusion Reactions: No Reported Reaction Past Psychological History: ADD/ADHD Smoking Status: Never smoker Past Drug Use History: None Reported - Past Family History Father Family Medical History: Coronary Artery Disease (CAD), Hypertension Additional Family Medical History / Comment(s): heart attack 2003 Medications and Allergies Home Medications Medication Instructions Recorded Confirmed Type Folic Acid 1 tab PO DAILY 04/03/20 04/26/21 History Pnv,Calcium 72/Iron/Folic Acid 1 tab PO DAILY 04/03/20 04/22/20 History [ Plus Tablet] Aspirin [Sharkey Aspirin EC] 81 mg PO DAILY 04/26/21 04/26/21 History Cetirizine HCl [Zyrtec] 5 mg PO DAILY 04/26/21 04/26/21 History Allergies Allergy/AdvReac Type Severity Reaction Status Date / Time No Known Allergies Allergy Verified 04/26/21 12:13 Exam Osteopathic Statement: *. No significant issues noted on an osteopathic structural exam other than those noted in the History and Physical/Consult. Intake and Output 04/26/21 04/26/21 04/26/21 06:59 14:59 22:59 Other: Weight 119.295 kg HEENT: within normal limits Heart: regular rate and rhythm Lungs: clear to auscultation bilaterally Abd: , non-tender Cervix: 1.5 cm/70%/-3 heart tones: cat. 1 Contractions: irreg. Extremities: 2+ swelling, neg. Ayleen's Results Result Diagrams: 04/26/21 13:40 04/26/21 12:25 Abnormal Lab Results - Last 24 Hours (Table) 04/26/21 04/26/21 Range/Units 12:18 12:25 BUN 5 L (7-17) mg/dL Creatinine 0.46 L (0.52-1.04) mg/dL Urine Appearance Cloudy H (Clear) Ur Leukocyte Esterase Small H (Negative) Ur Squamous Epith Cells 14 H (0-4) /hpf Urine Bacteria Rare H (None) /hpf Urine Mucus Rare H (None) /hpf Assessment and Plan (1) Preeclampsia Current Visit: Yes Status: Acute Code(s): O14.90 - UNSPECIFIED PRE- ECLAMPSIA, UNSPECIFIED TRIMESTER SNOMED Code(s): 068352521 (2) 37 weeks gestation of Current Visit: Yes Status: Acute Code(s): Z3A.37 - 37 WEEKS GESTATION OF SNOMED Code(s): 47570351 (3) Previous delivery affecting Current Visit: Yes Status: Acute Code(s): O34.219 - MATERNAL CARE FOR UNSP TYPE SCAR FROM PREVIOUS DEL SNOMED Code(s): 963257754 Plan: Admit for repeat section. Will start Magnesium sulfate after delivery for approximately 12-24 hours after delivery. Pt. and her are counselled on risks and benefits of the procedure and all questions are answered. I have discussed the risks, benefits, and alternative therapies for the above-mentioned procedure and for both sedation/anesthesia as well as necessary blood products administration, if indicated, as they pertain to this patient. The patient has indicated her understanding and acceptance of the risks and procedures discussed.
--- NOTE | 2021-04-26 16:14 | P.MSEPDOC ---
Presenting Problems - Arrival Data Date of Arrival on Unit: 04/26/21 Time of Arrival on Unit: 11:53 Mode of Transport: Ambulatory - Complaint OB-Reason for Admission/Chief Complaint: PIH Medical History - Information : 3 Para: 1 Term: 1 : 0 Abortions: Spontaneous or Elective: 1 Number of Living Children: 1 - Gestational Age Gestational Age by VIPIN (wks/days): 37 Weeks and 2 Days - History Complications: Preeclampsia Review of Systems - Review of Systems Constitutional: No problems Breast: No problems ENT: No problems Cardiovascular: No problems Respiratory: No problems Gastrointestinal: No problems Genitourinary: No problems Musculoskeletal: No problems Neurological: No problems Skin: No problems Vital Signs - Temperature Temperature: 97.1 F Temperature Source: Temporal Artery Scan - Pulse Sitting Pulse Rate: 84 Pulse Assessment Method: Automatic Cuff - Respirations Respiratory Rate: 16 Oxygen Delivery Method: Room Air O2 Sat by Pulse Oximetry: 97 - Blood Pressure Right Arm Sitting Blood Pressure: 157/94 Blood Pressure Mean: 115 Blood Pressure Source: Automatic Cuff Medical Screen Scoring - Uterine Contractions Intensity: Absent Resting: Soft to palpation - Assessment - Baby A Baseline FHR: 140 Heart Rate - NICHD Category: Category I (Normal) NST: Reactive Physician Notification - Physician Notified Physician Notified Date: 04/26/21 Physician Notified Time: 13:30 Physician: Dr Neal New Order Received: Yes - Notification Comment Comment: admit for repeat section this afternoon Maternal Triage Index - Maternal Triage Index Presenting for scheduled procedure w/no complaint: No - Stat/Priority 1 Stat Priority 1: No - Urgent/Priority 2 Urgent Priority 2: Yes Provider Notified: Dr Neal Provider Notified Time: 12:00 Criteria Met for Priority 2: initial BP 157/94 Disposition - Disposition OB Disposition: Admit, LDRP Suite I agree with the RN Medical Screening Exam: Yes Case reviewed; plan agreed upon as documented in EMR&OBIX.: Yes Diagnosis: MILD TO MODERATE PRE-ECLAMPSIA, THIRD TRIMESTER
[2021-04-26] MEDS ORDERED: NALBUPHINE 10 MG/ML (1 ML AMP) ONE (16:41)
[2021-04-26] MEDS ORDERED: KETOROLAC 15 MG/ML 1 ML VIAL ONE (16:41)
[2021-04-26] MEDS ORDERED: OXYTOCIN 30 UNITS/500 ML NS BAG IV ONE (16:41)
[2021-04-26] MEDS ORDERED: MORPHINE SULFATE (PF) 0.3 MG/0.3 ML SYR ONE (16:41)
[2021-04-26] MEDS ORDERED: NALBUPHINE 10 MG/ML (1 ML AMP) IV PRN (17:28)
[2021-04-26] MEDS ORDERED: NALOXONE 0.4 MG/ML 1 ML VIAL IV PRN ×2 (17:28→17:57)
[2021-04-26] MEDS ORDERED: HYDROmorphone 0.5 MG/0.5 ML SYRINGE IVP PRN (17:28)
[2021-04-26] MEDS ORDERED: KETOROLAC 15 MG/ML 1 ML VIAL IVP PRN (17:28)
[2021-04-26] MEDS ORDERED: ONDANSETRON 4 MG/2 ML VIAL IVP PRN ×2 (17:28→17:57)
[2021-04-26] MEDS ORDERED: diphenhydrAMINE 50 MG/ML 1 ML VIAL IVP PRN ×3 (17:28→17:57)
--- NOTE | 2021-04-26 17:34 | P.OP ---
Date of Procedure: 04/26/21 Preoperative Diagnosis: 1. Intrauterine at 37-2/7 weeks. 2. Preeclampsia 3. History of previous section. Postoperative Diagnosis: Same Procedure(s) Performed: Repeat low transverse section Anesthesia: spinal (Duramorph) Surgeon: Martha Neal Balance Engineer #1: Christine Zamudio Estimated Blood Loss (ml): 200 Pathology: other (Placenta) Condition: stable Disposition: floor Indications for Procedure: This is a 36-year-old female 3 para 1 at 37-2/7 weeks who presents for repeat low transverse section due to preeclampsia diagnosed today. Please see history and physical for details of patient's admission. I have discussed the risks, benefits, and alternative therapies for the above- mentioned procedure and for both sedation/anesthesia as well as necessary blood products administration, if indicated, as they pertain to this patient. The patient has indicated her understanding and acceptance of the risks and procedures discussed. Operative Findings: A viable male infant is noted in the vertex presentation with Apgars scores of 8 at 1 minute and 6 at 5 minutes and 8 at 10 minutes. weight is 8 pounds 8.5 ounces. Normal uterus tubes and ovaries are noted. Description of Procedure: The patient is taken to the operating room where she is placed in the dorsal supine position with leftward tilt after spinal Duramorph anesthesia is given. She is prepped and draped in the normal sterile fashion. Skin was tested and found to be adequately anesthetized. A Pfannenstiel skin incision was made with a scalpel through the previous laparotomy scar. A second knife was used to carry the incision down to the underlying layer of fascia. The fascia was nicked in the midline with a scalpel and then extended laterally bilaterally with Anderson scissors. The anterior lip of the fascia was grasped with 2 Gabrielle clamps and then dissected off the underlying rectus muscle in the midline with Anderson scissors. The inferior aspect of the fascial incision was grasped with 2 Gabrielle clamps and dissected off the underlying rectus muscle and the midline with Anderson scissors. Next the peritoneum layer was tented up with 2 hemostats and then entered sharply with the scalpel. The incision is extended superiorly and inferiorly with Metzenbaum scissors. Next a DeLee retractor is placed. The vesicouterine peritoneum is entered sharply with Metzenbaum scissors and extended laterally bilaterally with Metzenbaum scissors and then the bladder flap is pushed inferiorly. The lower uterine segment is incised in transverse fashion with the scalpel and then bluntly entered with a hemostat. Clear fluid is noted. The incision was then extended laterally bilaterally with 2 fingers. Next the infant's head is delivered through the incision. Nose and mouth are bulb suctioned. The remainder of the is easily delivered and placed on mother's abdomen. Cord is clamped and cut. is taken to warmer by nursing staff. Uterine fundus is gently massaged and placenta is delivered manually. Uterus is exteriorized and cleared of all clots and debris. Uterine incision is closed with 0 Vicryl suture in a running locked fashion. A second layer of 0 Vicryl suture is used in a running fashion for hemostasis. Once adequate hemostasis as assured, the vesicouterine peritoneum is reapproximated with 2-0 Vicryl suture in a running fashion. Posterior cul-de-sac is suctioned of all clots and debris. Uterus is returned to the abdomen. Incision is noted to be hemostatic. Peritoneal layer is closed with 0 Vicryl suture in a running fashion. Muscle layer is reapproximated with 0 Vicryl suture in interrupted fashion. Fascia layer is then closed with 0 PDS suture with 2 sutures meeting in the midline and the knots buried in either side and in the midline. The subcutaneous tissue was then closed with 2-0 Vicryl suture. Skin layer was then closed with jen. All sponge and needle counts are correct. The patient is taken to recovery room in stable condition.
[2021-04-26] MEDS ORDERED: MORPHINE SULFATE 2 MG/ML SYRINGE IVP PRN (17:57)
[2021-04-26] MEDS ORDERED: METOCLOPRAMIDE 5 MG/ML 2 ML VIAL IVP PRN (17:57)
[2021-04-26] MEDS ORDERED: ZOLPIDEM 5 MG TAB PO PRN (17:57)
[2021-04-26] MEDS ORDERED: MAGNESIUM SULFATE GM 6 GM in SODIUM CHLORIDE 0.9% 100 ML IVPB ONE (17:57)
[2021-04-26] MEDS ORDERED: diphenhydrAMINE 25 MG CAP PO PRN (17:57)
[2021-04-26] MEDS ORDERED: OXYTOCIN 30 UNITS/500 ML NS 30 UNIT in SALINE 1 500ML.BAG IV SCH (17:57)
[2021-04-26] MEDS ORDERED: SIMETHICONE 80 MG CHEWABLE PO PRN (17:57)
[2021-04-26] MEDS ORDERED: diphenhydrAMINE 50 MG CAP PO PRN (17:57)
[2021-04-26] MEDS ORDERED: hydrALAZINE HCL 20 MG/ML 1 ML VIAL IVP PRN (17:57)
[2021-04-26] MEDS ORDERED: LANOLIN CREAM 5 GM TUBE TOPICAL PRN (17:57)
[2021-04-26] MEDS ORDERED: LABETALOL 5 MG/ML VIAL MDV IVP PRN ×3 (17:57)
[2021-04-26] MEDS ORDERED: CALCIUM GLUCONATE 1 GM/10 ML VIAL IV PRN (17:57)
[2021-04-26] MEDS: MAGNESIUM SULFATE-WATER PMX 20 GM in WATER FOR INJECTION 1 500ML.BAG IV SCH (18:47)
[2021-04-26] MEDS: ACETAMINOPHEN TAB 500 MG TAB PO SCH (23:03)
[2021-04-26] MEDS: SENNOSIDES-DOCUSATE SODIUM 1 EACH TAB PO SCH (23:04)
[2021-04-27] MEDS: KETOROLAC 15 MG/ML 1 ML VIAL IVP SCH ×4 (00:32→19:41)
[2021-04-27] MEDS: IBUPROFEN 600 MG TAB PO SCH ×4 (01:15→18:52)
[2021-04-27] MEDS: ACETAMINOPHEN TAB 500 MG TAB PO SCH ×3 (04:11→17:28)
[2021-04-27] MEDS: MAGNESIUM SULFATE-WATER PMX 20 GM in WATER FOR INJECTION 1 500ML.BAG IV SCH (04:12)
[2021-04-27 04:20] LABS: Basophils % (A) 0 %; Eosinophils # (A) 0.1 k/uL (0-0.7); Eosinophils % (A) 1 %; HGB 14.2 gm/dL (11.4-16.0); Lymphocytes # (A) 1.7 k/uL (1.0-4.8); Lymphocytes % (A) 12 %; MCH 32.6 pg (25.0-35.0); MCHC 33.8 g/dL (31.0-37.0); MCV 96.4 fL (80.0-100.0); Mean Platelet Volume 8.8; Monocytes # (A) 0.7 k/uL (0-1.0); Monocytes % (A) 5 %; Neutrophils # (A) 11.7 k/uL (1.3-7.7); Neutrophils % (A) 82 %; Platelet Count 235 k/uL (150-450); Poikilocytosis Slight; RBC 4.35 m/uL (3.80-5.40); RDW 14.7 % (11.5-15.5); WBC 14.4 k/uL (3.8-10.6)
--- NOTE | 2021-04-27 07:36 | P.PN ---
Progress Note - Text Progress Note Date: 04/27/21 Postoperative day 1 status post section under spinal anesthesia, and i ntrathecal morphine given for postoperative analgesia, patient doing well, there is no anesthesia related complications, Patient had no headache, vital signs stable , Assessment and plan= postop day 1 status post , doing well there is no anesthesia related complication.
[2021-04-27] MEDS: SENNOSIDES-DOCUSATE SODIUM 1 EACH TAB PO SCH ×2 (07:47→19:42)
[2021-04-27] MEDS: LACTATED RINGERS 1,000 ML IV SCH ×3 (07:48→20:55)
--- NOTE | 2021-04-27 08:52 | P.PNOBGPC ---
Subjective - Subjective Principal diagnosis: Status post repeat low transverse postoperative day #1 Interval history: Patient is doing okay. Her pain is fairly well controlled. Lochia is minimal. She is draining a significant amount of urine through her Jackson catheter. She is pumping her breast milk. She does state she has a mild headache when she sits up and otherwise does not have a headache. Patient reports: Reports voiding normally, Reports pain well controlled Rex: other (In level I nursery) Objective - Vital Signs Latest vital signs: Vital Signs Temp Pulse Resp BP Pulse Ox 04/27/21 06:00 78 16 144/81 96 04/27/21 05:00 73 16 140/77 98 04/27/21 04:00 73 16 139/84 97 04/27/21 03:00 98.0 F 72 16 133/75 97 04/27/21 02:00 71 16 133/76 97 04/27/21 01:00 97.3 F L 74 16 140/75 98 04/27/21 00:00 75 16 141/77 98 04/26/21 23:00 98.0 F 81 16 139/83 98 04/26/21 22:00 84 16 150/76 98 04/26/21 21:30 16 04/26/21 21:00 98.4 F 88 16 157/78 97 04/26/21 20:30 84 16 147/77 96 04/26/21 20:15 98.4 F 86 16 155/81 96 04/26/21 19:46 96 04/26/21 19:30 74 18 143/84 96 04/26/21 19:15 75 16 144/83 95 04/26/21 19:00 77 16 143/79 95 04/26/21 18:45 75 16 140/76 95 04/26/21 18:30 85 16 139/83 96 04/26/21 18:15 71 18 129/74 95 04/26/21 18:00 78 16 125/68 95 04/26/21 17:57 95 04/26/21 17:45 78 16 121/67 97 04/26/21 17:30 97.0 F L 72 18 117/61 96 04/26/21 16:14 97.1 F L 84 16 157/94 97 04/26/21 12:12 97.1 F L 84 16 157/94 97 Intake and Output 04/26/21 04/27/21 04/27/21 22:59 06:59 14:59 Intake Total 1500 1851.933 Output Total 800 1810 Balance 700 41.933 Intake: IV 1500 Intake, IV Titration 1851.933 Amount Lactated Ringers 1,000 ml 132.5 @ 125 mls/hr IV .Q8H TOM Rx#:[id number] Magnesium Sulfate-Water 1719.433 Pmx 20 gm In Water For Injection 1 500ml.bag @ 2 GM/HR 50 mls/hr IV .Q10H TOM Rx#:[id number] Output: Urine 600 1610 Estimated Blood Loss 200 200 - Exam Extremities: Present: edema (Trace). Absent: tenderness Abdomen: Present: normal appearance, soft (Positive bowel sounds 4). Absent: distention, tenderness Incision: Present: normal, dry, intact. Absent: erythematous Uterus: Present: normal, firm. Absent: tenderness - Labs Labs: Abnormal Lab Results - Last 24 Hours (Table) 04/26/21 04/26/21 04/27/21 Range/Units 12:18 12:25 02:49 WBC 14.4 H (3.8-10.6) k/uL Neutrophils # 11.7 H (1.3-7.7) k/uL BUN 5 L (7-17) mg/dL Creatinine 0.46 L (0.52-1.04) mg/dL Urine Appearance Cloudy H (Clear) Ur Leukocyte Esterase Small H (Negative) Ur Squamous Epith Cells 14 H (0-4) /hpf Urine Bacteria Rare H (None) /hpf Urine Mucus Rare H (None) /hpf Assessment and Plan Assessment: Status post repeat low transverse section postoperative day #1 Preeclampsia, on magnesium sulfate seizure prophylaxis for over 12 hours (1) Preeclampsia Current Visit: Yes Status: Acute Code(s): O14.90 - UNSPECIFIED PRE- ECLAMPSIA, UNSPECIFIED TRIMESTER SNOMED Code(s): 175163937 (2) 37 weeks gestation of Current Visit: Yes Status: Acute Code(s): Z3A.37 - 37 WEEKS GESTATION OF SNOMED Code(s): 18660726 (3) Previous delivery affecting Current Visit: Yes Status: Acute Code(s): O34.219 - MATERNAL CARE FOR UNSP TYPE SCAR FROM PREVIOUS DEL SNOMED Code(s): 095871504 Plan: Will discontinue magnesium sulfate today. We'll continue to monitor blood pressures. Patient may begin to ambulate. Will switch to oral pain medication.
[2021-04-27] MEDS: FOLIC ACID 1 MG TAB PO SCH (10:24)
[2021-04-27] MEDS: LORATADINE 10 MG TAB PO SCH (10:24)
[2021-04-27] MEDS: PRENATAL VIT-IRON-FOLIC ACID 1 EACH CAP PO SCH (10:24)
[2021-04-28] MEDS: ACETAMINOPHEN TAB 500 MG TAB PO SCH ×5 (00:31→20:51)
[2021-04-28] MEDS: IBUPROFEN 600 MG TAB PO SCH ×5 (01:43→22:14)
[2021-04-28] MEDS: PRENATAL VIT-IRON-FOLIC ACID 1 EACH CAP PO SCH (08:34)
[2021-04-28] MEDS: SENNOSIDES-DOCUSATE SODIUM 1 EACH TAB PO SCH ×2 (08:34→20:44)
[2021-04-28] MEDS: LABETALOL 200 MG TAB PO SCH ×2 (08:34→20:56)
[2021-04-28] MEDS: FOLIC ACID 1 MG TAB PO SCH (08:34)
--- NOTE | 2021-04-28 08:45 | P.PNOBGPC ---
Subjective - Subjective Principal diagnosis: Status post repeat section postoperative day #2 Interval history: Patient is doing okay. She did have a headache yesterday. This has resolved today. Lochia is minimal. She is passing flatus and bowel movement. Baby is still in level I nursery. She is pumping her breast milk. Patient reports: Reports appetite normal, Reports voiding normally, Reports pain well controlled, Reports ambulating normally : other (In level I nursery) Objective - Vital Signs Latest vital signs: Vital Signs Temp Pulse Pulse Resp BP BP Pulse Ox 04/28/21 04:00 97.8 F 76 16 132/83 04/28/21 00:00 69 16 147/89 04/27/21 20:00 98.1 F 80 16 143/97 04/27/21 15:50 98.0 F 82 18 130/87 95 04/27/21 14:00 80 18 155/88 100 04/27/21 13:19 100 04/27/21 13:00 97.7 F 81 18 142/90 100 04/27/21 12:00 97.9 F 77 18 138/88 04/27/21 11:34 16 04/27/21 11:22 96 04/27/21 11:00 79 18 137/86 04/27/21 09:55 98.0 F 86 18 144/86 96 04/27/21 09:23 145/90 04/27/21 09:00 96 Intake and Output 04/27/21 04/28/21 04/28/21 22:59 06:59 14:59 Intake Total 60 Output Total 300 Balance -240 Intake: IV 60 Output: Urine 300 Other: # Voids 1 1 - Exam Extremities: Present: edema (Trace). Absent: tenderness Abdomen: Present: normal appearance, soft. Absent: distention, tenderness Incision: Present: normal, dry, intact. Absent: erythematous Uterus: Present: normal, firm. Absent: tenderness Assessment and Plan Assessment: Status post repeat section postoperative day #2 Preeclampsia-status post magnesium sulfate seizure prophylaxis (1) Preeclampsia Current Visit: Yes Status: Acute Code(s): O14.90 - UNSPECIFIED PRE- ECLAMPSIA, UNSPECIFIED TRIMESTER SNOMED Code(s): 108812490 (2) 37 weeks gestation of Current Visit: Yes Status: Acute Code(s): Z3A.37 - 37 WEEKS GESTATION OF SNOMED Code(s): 94634873 (3) Previous delivery affecting Current Visit: Yes Status: Acute Code(s): O34.219 - MATERNAL CARE FOR UNSP TYPE SCAR FROM PREVIOUS DEL SNOMED Code(s): 198089694 Plan: Blood pressures have been in the 140s to 150s over 90s. Will start labetalol 200 mg twice a day today. Will observe blood pressures and symptoms.
[2021-04-28] MEDS: LORATADINE 10 MG TAB PO SCH (11:56)
[2021-04-29] MEDS: ACETAMINOPHEN TAB 500 MG TAB PO SCH ×4 (01:18→20:28)
[2021-04-29] MEDS: IBUPROFEN 600 MG TAB PO SCH ×3 (04:20→19:40)
[2021-04-29] MEDS: SENNOSIDES-DOCUSATE SODIUM 1 EACH TAB PO SCH ×2 (07:52→20:28)
[2021-04-29] MEDS: FOLIC ACID 1 MG TAB PO SCH (08:58)
[2021-04-29] MEDS: LABETALOL 200 MG TAB PO SCH ×2 (08:58→20:38)
[2021-04-29] MEDS: LORATADINE 10 MG TAB PO SCH (09:06)
[2021-04-29] MEDS: PRENATAL VIT-IRON-FOLIC ACID 1 EACH CAP PO SCH (09:06)
--- NOTE | 2021-04-29 09:06 | P.PNOBGPC ---
Subjective - Subjective Principal diagnosis: Status post repeat low transverse section postoperative day #3 Interval history: Patient is doing better today. Her blood pressures have been normal. She denies any headaches or blurry vision. She is passing flatus and bowel movement. Lochia did increase a little bit last night but has not been extremely heavy. Pain is been well controlled. Baby is still in level I nursery but is starting to feed. Patient reports: Reports appetite normal, Reports voiding normally, Reports pain well controlled, Reports ambulating normally [place]: other (In level I nursery) Objective - Vital Signs Latest vital signs: Vital Signs Temp Pulse Resp BP BP Pulse Ox 04/29/21 07:31 98.1 F 72 17 127/82 98 04/29/21 00:00 98.7 F 72 16 125/76 97 04/28/21 20:52 69 18 142/95 96 04/28/ 16:00 98.0 F 78 17 149/85 - Exam Extremities: Present: normal. Absent: tenderness Abdomen: Present: normal appearance, soft. Absent: distention Incision: Present: normal, dry, intact Uterus: Present: normal, firm, tenderness (Minimal) Assessment and Plan Assessment: Status post repeat low transverse section postoperative day #3 Preeclampsia-status post magnesium sulfate seizure prophylaxis, currently on antihypertensives (1) Preeclampsia Current Visit: Yes Status: Acute Code(s): O14.90 - UNSPECIFIED PRE- ECLAMPSIA, UNSPECIFIED TRIMESTER SNOMED Code(s): 675329836 (2) 37 weeks gestation of Current Visit: Yes Status: Acute Code(s): Z3A.37 - 37 WEEKS GESTATION OF SNOMED Code(s): 36663866 (3) Previous delivery affecting Current Visit: Yes Status: Acute Code(s): O34.219 - MATERNAL CARE FOR UNSP TYPE SCAR FROM PREVIOUS DEL SNOMED Code(s): 725832183 Plan: Will continue with postoperative and care today. Anticipate discharge home tomorrow.
[2021-04-29 20:26] VITALS: RESP 16
[2021-04-30] MEDS: IBUPROFEN 600 MG TAB PO SCH ×2 (02:02→06:16)
[2021-04-30] MEDS: ACETAMINOPHEN TAB 500 MG TAB PO SCH ×2 (02:08→08:12)
[2021-04-30 04:18] VITALS: PULSE 75
[2021-04-30] MEDS: LABETALOL 200 MG TAB PO SCH (08:12)
[2021-04-30] MEDS: PRENATAL VIT-IRON-FOLIC ACID 1 EACH CAP PO SCH (08:13)
[2021-04-30] MEDS: LORATADINE 10 MG TAB PO SCH (08:13)
[2021-04-30 08:19] VITALS: BP 117/90; TEMP 98.4
[2021-04-30] MEDS: SENNOSIDES-DOCUSATE SODIUM 1 EACH TAB PO SCH (08:19)
--- NOTE | 2021-04-30 10:17 | P.DS ---
Providers Date of admission: 04/26/21 13:28 Expected date of discharge: 04/30/21 Attending physician: Martha Neal Primary care physician: Stated None - Discharge Diagnosis(es) (1) Preeclampsia Current Visit: Yes Status: Acute (2) Status post repeat low transverse section Current Visit: Yes Status: Acute Hospital Course: Patient presented with preeclampsia. She underwent a repeat low transverse C- section. She did have magnesium sulfate for was 24 hours after delivery. Her blood pressures did start to rise again so Dr. Neal put her on labetalol 200 mg twice a day. She will be discharged home postoperative day #4 in stable condition to follow-up with Dr. Neal next week. Plan - Discharge Summary Discharge Rx Participant: No New Discharge Prescriptions: New Ibuprofen [Motrin] 600 mg PO Q6H #60 tab HYDROcodone/APAP 5-325MG [[place] 5-325] 1 tab PO Q4HR PRN 3 Days #18 tab PRN Reason: Moderate To Severe Pain Labetalol [Trandate] 200 mg PO BID #28 tab Continue Pnv,Calcium 72/Iron/Folic Acid [ Plus Tablet] 1 tab PO DAILY Folic Acid 1 tab PO DAILY Discontinued Aspirin [[place] Aspirin EC] 81 mg PO DAILY No Action Cetirizine HCl [Zyrtec] 5 mg PO DAILY Discharge Medication List Folic Acid 1 tab PO DAILY 04/03/20 [History] Pnv,Calcium 72/Iron/Folic Acid [ Plus Tablet] 1 tab PO DAILY 04/03/20 [History] Cetirizine HCl [Zyrtec] 5 mg PO DAILY 04/26/21 [History] HYDROcodone/APAP 5-325MG [[place] 5-325] 1 tab PO Q4HR PRN 3 Days #18 tab 04/29/21 [Rx] Ibuprofen [Motrin] 600 mg PO Q6H #60 tab 04/29/21 [Rx] Labetalol [Trandate] 200 mg PO BID #28 tab 04/29/21 [Rx] Follow up Appointment(s)/Referral(s): Martha Neal DO [Doctor of Osteopathic Medicine] - 06/07/21 2:00 pm (05-03-2021 at 01:30 p.m.) Activity/Diet/Wound Care/Special Instructions: Instructions 1. Do not begin any exercise program for 3 weeks. 2. Do not resume sexual relations for 3 weeks or longer if uncomfortable. 3. You may take tub baths or showers at any time. 4. You may use tampons if desired after 3 weeks. 5. Keep the area of episiotomy (stitches) clean and dry. 6. If you are not nursing, wear a good fitting, supportive bra during the day and limit fluid intake for at least 1 week to prevent breast engorgement. 7. Call the office, [phone], within the next week to make appointment for your 6 week checkup if it has not already been made. 8. Report any of the following occurrences to the doctor promptly: a. Heavy, excessive bleeding b. Chills, fever c. Burning or frequency of urination d. Pain or redness and breasts if nursing e. Increasing pain or swelling in episiotomy (stitches). In addition to the above instructions, the following additional should be followed: 1. No heavy lifting or straining (exercising) until after 6 week checkup. 2. Keep abdominal incision clean and dry: You may wear a dressing if more comfortable. 3. Make office appointment for 10 days after going home or as instructed by her doctor. Discharge Disposition: HOME SELF-CARE
[2021-04-30] MEDS: FOLIC ACID 1 MG TAB PO SCH (12:09)
== END 2021-04-30 12:09 | disposition home or self-care (01) | DRG 788 ==
LOC: FBPOP 11:53 → 4FBP 13:28
PROVIDERS: ADMIT Obstetrics & Gynecology; ATTEND Obstetrics & Gynecology
PROC: 10D00Z1 Extraction of Products of Conception, Low, Open Approach (ICD-10-PCS; principal; 2021-04-26 16:43)
DX: O34.211 Maternal care for low transverse scar from previous cesarean delivery (principal); F90.9 Attention-deficit hyperactivity disorder, unspecified type; O99.343 Other mental disorders complicating pregnancy, third trimester; O14.94 Unspecified pre-eclampsia, complicating childbirth; Z37.0 Single live birth; Z3A.37 37 weeks gestation of pregnancy; Z79.82 Long term (current) use of aspirin
CPT/HCPCS: 59025; 81001; 82565; 82570; 83615; 84156; 84450; 84460; 84520; 84550; 85025; 86850; 86900; 86901; 88307; 99215

== ENCOUNTER → 2021-06-17 | Outpatient (CLI) | payer OTHER | END | disposition home or self-care (01) | LOC: LABWHC1 08:09 | PROVIDERS: ATTEND Obstetrics & Gynecology | DX: N91.2 Amenorrhea, unspecified (principal) | CPT/HCPCS: 36415; 84702 ==

== ENCOUNTER → 2024-08-27 | Outpatient (CLI) | payer OTHER ==
--- NOTE | 2024-08-28 08:17 | MM ---
Reason for Exam: Screening (asymptomatic). Baseline mammogram. Patient History: Menarche at age 15. First Full-Term at age 35. Late child-bearing (after 30). Patient has history of breast feeding. Patient used Hormonal Contraceptives for 18 years. Last menstrual period: 08/24/2024 Risk Values: Claudia 5 year model risk: 0.7%. NCI Lifetime model risk: 12.5%. Prior Study Comparison: Patient's first Mammogram. Tissue Density: There are scattered areas of fibroglandular density. Findings: Analyzed By CAD. There is no suspicious group of microcalcifications in either breast. Asymmetric nodular density on the right cc view 6.3 cm from the nipple. Additional views recommended. Overall Assessment: Incomplete: need additional imaging evaluation, BI-RAD 0 Management: Diagnostic Mammogram of the right breast. . Patient should continue monthly self-breast exams. A clinical breast exam by your physician is recommended on an annual basis. This exam should not preclude additional follow-up of suspicious palpable abnormalities. Note on Claudia scores and lifetime risk: 1. A Claudia score greater than 3% is considered moderate risk. If this is the case, consider specialist referral to assess eligibility for a risk reducing agent. 2. If overall lifetime risk for the development of breast cancer is 20% or higher, the patient may qualify for future screening with alternating mammogram and breast MRI. [facility], , 08/28/2024 8:13 AM. Electronically signed and approved by: Herbie Piper M.D. Radiologis
== END | disposition home or self-care (01) ==
LOC: RADMAMWWP 13:16
PROVIDERS: ATTEND Obstetrics & Gynecology
DX: Z12.31 Encounter for screening mammogram for malignant neoplasm of breast (principal); R92.323 Mammographic fibroglandular density, bilateral breasts
CPT/HCPCS: 77063; 77067

== ENCOUNTER → 2024-09-12 | Outpatient (CLI) | payer OTHER ==
--- NOTE | 2024-09-12 10:38 | MM ---
Reason for Exam: Additional evaluation requested from abnormal screening. Last screening mammogram was performed less than 1 month ago. Patient History: Menarche at age 15. First Full-Term at age 35. Late child-bearing (after 30). Patient has history of breast feeding. Patient used Hormonal Contraceptives for 18 years. Risk Values: Claudia 5 year model risk: 0.7%. NCI Lifetime model risk: 12.5%. Prior Study Comparison: 08/27/2024 Bilateral MG 3D screening mammo w/cad, [facility]. Tissue Density: Right: There are scattered areas of fibroglandular density. Findings: Analyzed By CAD. Impression no persistent suspicious densities evident. The medial and lateral appears unremarkable. Precautionary 6 month follow-up recommended. No suspicious groups of microcalcifications, spiculated or lobular masses, architectural distortion or other secondary signs of malignancy are mammographically apparent. Overall Assessment: Probably benign, BI-RAD 3 Management: Diagnostic Mammogram of the right breast in 6 months. A negative mammogram report should not preclude additional follow up of suspicious palpable abnormalities. Patient should continue monthly self breast exam. A clinical breast exam by your physician is recommended on an annual basis and results should be correlated with mammographic findings. Note on Claudia scores and lifetime risk: 1. A Claudia score greater than 3% is considered moderate risk. If this is the case, consider specialist referral to assess eligibility for a risk reducing agent. 2. If overall lifetime risk for the development of breast cancer is 20% or higher, the patient may qualify for future screening with alternating mammogram and breast MRI. [facility], , 09/12/2024 10:35 AM. Electronically signed and approved by: Ryan Kingston D.O. Radiologis
== END | disposition home or self-care (01) ==
LOC: RADMAMWWP 08:21
PROVIDERS: ATTEND Obstetrics & Gynecology
DX: R92.8 Other abnormal and inconclusive findings on diagnostic imaging of breast (principal); R92.321 Mammographic fibroglandular density, right breast
CPT/HCPCS: 77061; 77065